=== PATIENT | male | born 1950 | race Caucasian/White ===

== ENCOUNTER 2024-12-10 08:44 | Outpatient (CLI) | payer MEDICARE | END 2024-12-10 08:45 | disposition home or self-care (01) | LOC: SCSRAD 08:44 | PROVIDERS: ATTEND Family Medicine | DX: M25.551 Pain in right hip (principal) ==

== ENCOUNTER 2024-12-23 08:21 | Outpatient (CLI) | payer MEDICARE ==
[2024-12-23 09:03] LABS: Estimated GFR - POC 70.0
[2024-12-23] MEDS ORDERED: Iopamidol 370 76% 100 ML VIAL ONE (10:09)
== END 2024-12-23 08:22 | disposition home or self-care (01) ==
LOC: CT 08:21
PROVIDERS: ATTEND Family Medicine
DX: I65.03 Occlusion and stenosis of bilateral vertebral arteries (principal); I70.90 Unspecified atherosclerosis
CPT/HCPCS: 36415; 70498; 82565; Q9967